=== PATIENT | female | born 1950 | race Two or more races ===

== ENCOUNTER 2016-07-04 15:33 | Emergency (ER) | payer OTHER ==
[2016-07-04] MEDS ORDERED: CARBAMIDE PEROXIDE 15 ML BOTTLE LEFTEAR ONE (16:05)
[2016-07-04] MEDS ORDERED: MECLIZINE HCL 25 MG TAB PO ONE (16:05)
--- NOTE | 2016-07-04 16:12 | EDPHY ---
H & P Time Seen by Provider: 07/04/16 15:56 HPI/ROS: This patient reports left ear pain described as pressure associated with vertigo that is worse with head movements reminiscent of a prior episode of a peripheral vertigo. She also reports tinnitus in the left ear. The symptoms started on Monday, 3 days prior to arrival and have worsened since then. She reports nausea and vomiting over the past 2 days that she attributes to the vertigo. She reports some epigastric discomfort described as mildly burning in nature that started after the vomiting. She has diminished appetite due to her symptoms. ROS: Constitutional: No fevers or chills. No other constitutional symptoms HEENT: Patient reports moderate left frontal and maxillary sinus pressure associated with her left ear pressure. She also reports chronic nasal congestion over more than a month. No sore throat. No right ear symptoms. No drainage from the left ear. Pulmonary: No cough or other complaints GI: No hemoptysis. Normal bowel movements. No lower belly pain. Neuro: She reports a frontal headache similar to previous headaches over the past 3 days mild in intensity. No focal numbness tingling or weakness. 7 point ROS is otherwise negative. Past Medical/Surgical History: Prior peripheral vertigo Social History: Does not drink alcohol. No recreational drugs. Smoking Status: Never smoked Physical Exam: Physical exam: Vital signs are normal General: Patient is in no acute distress. HEENT: Is no external evidence of trauma on exam. She has left frontal more than maxillary sinus tenderness to percussion. Nose: Swollen nasal mucosa and turbinates on the left side. Right naris clear Ears: Right external canal has partial cerumen impaction but the TM is still visible and clear left external canal: Cerumen impaction Oropharynx: No dental trauma or malocclusion. No intraoral lacerations. Eyes: Pupils are equal and reactive to light. Extraocular motions are intact. Optic fundi: Clear with no papilledema or hemorrhage. Neck: Supple Lungs: Clear to auscultation bilaterally Cardiac: Regular rate and rhythm no murmur gallop or rub. Chest: Nontender. Abdomen: Soft nontender no organomegaly Back: Nontender Extremities: Atraumatic Neuro: GCS of 15. Cranial nerves II through XII intact. Cerebellar exam is normal as judged by symmetric rapid hand movements bilaterally. She has increased vertigo with head movement. No sensory or motor deficits are appreciated. Initial differential diagnosis: Meniere's disease, on benign positional vertigo , cerumen impaction with cerumen effect on tympanic membrane, sinusitis tension headache, gastritis, viral illness Constitutional: Initial Vital Signs Temperature (C) 37.2 C 07/04/16 15:43 Heart Rate 76 07/04/16 15:43 Respiratory Rate 18 07/04/16 15:43 Blood Pressure 165/78 H 07/04/16 15:43 O2 Sat (%) 97 07/04/16 15:43 O2 Delivery Mode Room Air Allergies/Adverse Reactions: Penicillins Allergy (Verified 05/08/13 11:19) Home Medications: Medication Instructions Recorded Azithromycin [Zithromax 250 mg 250 mg PO DAILY #6 tab 05/08/13 tab(RX)] Medication For Dizziness 05/08/13 Fluticasone Nasal [Flonase Nasal 2 sprays NASAL DAILY #1 mdi 07/04/16 [place] (RX)] Meclizine HCl [Meclizine HCl 25 mg 25 mg PO TID PRN #20 tab 07/04/16 (RX,OTC)] Ondansetron Odt [Zofran Odt] 4 - 8 mg PO Q4PRN PRN #4 tab 07/04/16 MDM/Departure - MDM Medications Given: Discontinued Medications Al Hydroxide/Mg Hydroxide (Maalox Susp) 30 ml PO ONCE ONE Stop: 07/04/16 16:18 Last Admin: 07/04/16 16:27 Dose: 30 ml Carbamide Peroxide (Debrox) 5 drop LEFTEAR EDNOW ONE Stop: 07/04/16 16:06 Last Admin: 07/04/16 16:10 Dose: 5 drops Meclizine HCl (Meclizine Hcl) 25 mg PO EDNOW ONE Stop: 07/04/16 16:06 Last Admin: 07/04/16 16:10 Dose: 25 mg ED Course/Re-evaluation: Course: Meclizine with reduction in her vertigo Debrox to the left ear followed by irrigation with removal of cerumen. Repeat ear exam revealed a clear effusion behind the left TM with no erythema associated with this. Findings consistent with serous otitis GI cocktail with resolution of epigastric discomfort. Patient's nausea also resolved. She felt significantly improved. Discussion: Patient presents with findings of a peripheral vertigo without evidence of central vertigo. Diagnosis is most consistent with benign positional vertigo and serous otitis. Counseled the patient regarding this. I think that her epigastric symptoms are attributable to gastritis associated with her vomiting. Patient agrees with this. She feels comfortable going home at this time. She will follow up with the outpatient physician on-call for today she does not currently have a primary care physician. Also recommended follow up with the ENT specialist if she has ongoing symptoms and provided that number for as well - Depart Disposition: Home, Routine, Self-Care Clinical Impression: Impacted cerumen of left ear Benign positional vertigo Qualifiers: Laterality: unspecified laterality Qualified Code(s): H81.10 - Benign paroxysmal vertigo, unspecified ear Serous otitis media Qualifiers: Laterality: left Chronicity: acute Recurrence: not specified as recurrent Qualified Code(s): H65.02 - Acute serous otitis media, left ear Vomiting Qualifiers: Vomiting type: unspecified Vomiting Intractability: non-intractable Nausea presence: unspecified Qualified Code(s): R11.10 - Vomiting, unspecified Gastritis Qualifiers: Gastritis type: unspecified gastritis Chronicity: acute Gastritis bleeding: without bleeding Qualified Code(s): K29.00 - Acute gastritis without bleeding Condition: Good Instructions: Gastritis (ED), Acute Nausea and Vomiting (ED), Benign Paroxysmal Positional Vertigo (ED) Additional Instructions: Diagnoses: 1. Benign positional vertigo 2. Vomiting 3. Gastritis 4. Serous otitis Plan: Flonase steroid nasal spray Meclizine if needed for spinning sensation Zofran for nausea or vomiting if needed Maalox [id number] for gastritis [place] diet until he feel improved Typically the symptoms will resolve over a period of 3-7 days. If you have ongoing symptoms, follow up with primary care physician (Dr. Leone) or ENT physician (Dr. Mcgregor) listed below. Return to the emergency department for any significant worsening despite the treatment plan Stand Alone Forms: Work Excuse Prescriptions: Fluticasone Nasal [Flonase Nasal [place] (RX)] 2 sprays NASAL DAILY #1 mdi Meclizine HCl [Meclizine HCl 25 mg (RX,OTC)] 25 mg PO TID PRN #20 tab PRN Reason: vertigo Ondansetron Odt [Zofran Odt] 4 - 8 mg PO Q4PRN PRN #4 tab PRN Reason: Vomiting Referrals: NONE *PRIMARY CARE P,. [Primary Care Provider] - As per Instructions Clive Leone MD [Medical Doctor] - As per Instructions Shannon Mcgregor MD [Medical Doctor] - As per Instructions
[2016-07-04] MEDS ORDERED: MAG HYDROX/AL HYDROX/SIMETH 30 ML UDCUP PO ONE (16:17)
[2016-07-04 16:51] VITALS: BP 159/76; PULSE 72; RESP 16; TEMP 98.4; O2SAT 96
== END 2016-07-04 16:50 | disposition home or self-care (01) ==
LOC: CED 15:33
PROC: 3E1B78Z Irrigation of Ear using Irrigating Substance, Via Natural or Artificial Opening (ICD-10-PCS; principal; 2016-07-04)
DX: H61.22 Impacted cerumen, left ear (principal); H81.10 Benign paroxysmal vertigo, unspecified ear; H65.02 Acute serous otitis media, left ear; K29.00 Acute gastritis without bleeding

== ENCOUNTER → 2016-07-05 | Outpatient (CLI) | payer OTHER | LOC: FIMAGING 13:30 | PROVIDERS: ATTEND Family Medicine | DX: Z12.39 Encounter for other screening for malignant neoplasm of breast (principal); N63 Unspecified lump in breast; N64.4 Mastodynia | CPT/HCPCS: G0204 ==